=== PATIENT | female | born 1995 | race Caucasian/White ===

== ENCOUNTER 2018-07-26 02:03 | Outpatient (CLI) | payer OTHER | END 2018-07-26 04:30 | disposition home or self-care (01) | LOC: OBT 02:03 → L-D 02:25 → OBT 04:30 | DX: O26.893 Other specified pregnancy related conditions, third trimester (principal); Z3A.32 32 weeks gestation of pregnancy; R06.02 Shortness of breath | CPT/HCPCS: 76815 ==

== ENCOUNTER 2018-08-16 02:58 | Outpatient (CLI) | payer OTHER ==
[2018-08-16] MEDS: AL HYDROX/MG HYDROX/SIMETH 30 ML CUP PO (04:15)
[2018-08-16 04:54] LABS: ADD UMIC YES; UR ASCORBIC ACID NEGATIVE (NEGATIVE); UR BACTERIA FEW /HPF (NONE SEEN); UR BILIRUBIN (Dip) NEGATIVE (NEGATIVE); UR BLOOD (Dip) NEGATIVE (NEGATIVE); UR CLARITY CLOUDY (CLEAR); UR COLOR YELLOW (YELLOW); UR GLUCOSE (Dip) NEGATIVE (NEGATIVE); UR KETONES (Dip) NEGATIVE (NEGATIVE); UR LEUKOCYTE ESTERASE (Dip) NEGATIVE Leu/ul (NEGATIVE); UR NITRITE (Dip) NEGATIVE (NEGATIVE); UR RBC 1 /HPF (0-5); UR SPECIFIC GRAVITY (Dip) 1.014 (1.003-1.030); UR SQUAMOUS EPITHELIAL CELL MODERATE /HPF (FEW); UR TOTAL PROTEIN (Dip) NEGATIVE (NEGATIVE); UR UROBILINOGEN (Dip) NEGATIVE (NEGATIVE); UR WBC 2 /HPF (0-5)
== END 2018-08-16 07:20 | disposition home or self-care (01) ==
LOC: OBT 02:58 → L-D 02:58 → OBT 07:20
DX: O26.893 Other specified pregnancy related conditions, third trimester (principal); Z3A.35 35 weeks gestation of pregnancy; R10.2 Pelvic and perineal pain
CPT/HCPCS: 81001

== ENCOUNTER 2018-09-10 06:06 | Inpatient (IN) | payer OTHER ==
[2018-09-10] MEDS ORDERED: CARBOPROST 250 MCG INJ IM ×2 (06:30→09:00)
[2018-09-10] MEDS ORDERED: METHYLERGONOVINE 0.2 MG INJ IM ×2 (06:30→09:00)
[2018-09-10] MEDS ORDERED: AMPICILLIN 2 GM/NS (PMX) 100 ML IV (06:30)
[2018-09-10] MEDS ORDERED: OXYTOCIN 30 UNITS/LR 500 ML IV ×3 (06:30→09:00)
[2018-09-10] MEDS ORDERED: MISOPROSTOL 200 MCG TAB PR ×2 (06:30→09:00)
[2018-09-10 06:55] LABS: ADD MAN DIFF? NO
[2018-09-10] MEDS ORDERED: EPHEDrine SULFATE 50 MG/5 ML SYG (07:00)
[2018-09-10] MEDS: LACTATED RINGER'S 1,000 ML IV ×2 (07:07→20:45)
[2018-09-10 07:08] LABS: WHITE BLOOD COUNT 10.1 10^3/ul (4.8-10.8)
[2018-09-10 07:08] LABS: BASOPHILS % 0.2 % (0.0-2.0); EOSINOPHILS # 0.1 10^3/ul (0.0-0.5); EOSINOPHILS % 0.6 % (0.0-7.0); HEMATOCRIT 31.5 % (37.0-47.0); HEMOGLOBIN 9.7 g/dl (12.0-16.0); LYMPHOCYTES # 2.5 10^3/ul (0.8-2.9); LYMPHOCYTES % 25.1 % (15.0-51.0); MEAN CORPUSCULAR HEMOGLOBIN 24.3 pg (29.0-33.0); MEAN CORPUSCULAR HGB CONC 30.8 g/dl (32.0-37.0); MEAN CORPUSCULAR VOLUME 78.9 fl (82.0-101.0); MEAN PLATELET VOLUME 8.8 fl (7.4-10.4); MONOCYTE # 0.6 10^3/ul (0.3-0.9); MONOCYTES % 5.9 % (0.0-11.0); NEUTROPHIL # 6.8 10^3/ul (1.6-7.5); NEUTROPHILS % 67.7 % (39.0-77.0); PLATELET COUNT 315 10^3/UL (140-415); RED BLOOD COUNT 3.99 10^6/ul (4.20-5.40); RED CELL DISTRIBUTION WIDTH 14.9 % (11.5-14.5)
[2018-09-10 07:29] LABS: INR 0.93; PARTIAL THROMBOPLASTIN TIME 27.6 Sec (23.0-35.0); PROTIME 12.6 Sec (11.9-14.9)
[2018-09-10] MEDS ORDERED: ONDANSETRON 4 MG INJ (07:30)
[2018-09-10] MEDS ORDERED: METOCLOPRAMIDE 10 MG INJ (07:30)
[2018-09-10] MEDS ORDERED: KETOROLAC 30 MG INJ (07:30)
[2018-09-10] MEDS ORDERED: morphine SULFATE/PF (10 MG/10 ML) INJ (07:30)
[2018-09-10] MEDS: CITRIC ACID/NA CITRATE 30 ML CUP PO (07:36)
[2018-09-10] MEDS ORDERED: FENTAnyl 50 MCG/ML VIAL (07:57)
[2018-09-10 07:58] LABS: HEPATITIS B SURFACE ANTIGEN NEGATIVE (NEGATIVE)
[2018-09-10] MEDS: OXYTOCIN 30 UNITS/LR 500 ML IV ×2 (09:00→11:06)
[2018-09-10] MEDS ORDERED: morphine (1 MG/ML) 10ML SYRINGE IV ×3 (09:00)
[2018-09-10] MEDS ORDERED: OXYCODONE/ACETAMINOPHEN (5/325) TAB PO (09:00)
[2018-09-10] MEDS ORDERED: ONDANSETRON 4 MG INJ IV ×2 (09:00)
[2018-09-10] MEDS ORDERED: morphine 2 MG INJ IV ×3 (09:00)
[2018-09-10] MEDS: SENNA/DOCUSATE NA (8.6MG/50MG) TAB PO ×2 (09:00→20:44)
[2018-09-10] MEDS ORDERED: NALOXONE (0.4 MG/ML) INJ IV (09:00)
[2018-09-10] MEDS ORDERED: DIPHENHYDRAMINE 50 MG INJ IV ×2 (09:00)
[2018-09-10] MEDS: CEFAZOLIN 2 GM/50 ML (PMX) 50 ML IVPB ×3 (09:36→23:37)
[2018-09-10] MEDS: IBUPROFEN 600 MG TAB PO ×2 (12:00→18:00)
[2018-09-10] MEDS: KETOROLAC 30 MG INJ IV (17:29)
[2018-09-10 20:02] LABS: RAPID PLASMA REAGIN NONREACTIVE (NR)
[2018-09-10] MEDS: LANOLIN 7 GM TUBE TOP (20:45)
[2018-09-11] MEDS: LACTATED RINGER'S 1,000 ML IV ×3 (04:31→16:30)
[2018-09-11] MEDS: KETOROLAC 30 MG INJ IV (05:08)
[2018-09-11] MEDS: LEVOTHYROXINE 50 MCG TAB PO (05:46)
[2018-09-11] MEDS ORDERED: LEVOTHYROXINE 50 MCG TAB PO (07:00)
[2018-09-11 08:42] LABS: ADD MAN DIFF? NO
[2018-09-11 08:50] LABS: WHITE BLOOD COUNT 8.1 10^3/ul (4.8-10.8)
[2018-09-11 08:50] LABS: BASOPHILS % 0.2 % (0.0-2.0); EOSINOPHILS % 0.5 % (0.0-7.0); HEMATOCRIT 26.6 % (37.0-47.0); HEMOGLOBIN 8.1 g/dl (12.0-16.0); LYMPHOCYTES # 1.9 10^3/ul (0.8-2.9); MEAN CORPUSCULAR HEMOGLOBIN 24.5 pg (29.0-33.0); MEAN CORPUSCULAR HGB CONC 30.5 g/dl (32.0-37.0); MEAN CORPUSCULAR VOLUME 80.4 fl (82.0-101.0); MEAN PLATELET VOLUME 8.8 fl (7.4-10.4); MONOCYTE # 0.6 10^3/ul (0.3-0.9); MONOCYTES % 6.9 % (0.0-11.0); NEUTROPHIL # 5.5 10^3/ul (1.6-7.5); NEUTROPHILS % 68.8 % (39.0-77.0); PLATELET COUNT 247 10^3/UL (140-415); RED BLOOD COUNT 3.31 10^6/ul (4.20-5.40); RED CELL DISTRIBUTION WIDTH 15.1 % (11.5-14.5)
[2018-09-11] MEDS: FERROUS SULFATE (EC) 325 MG TAB PO ×2 (08:50→21:17)
[2018-09-11] MEDS: SENNA/DOCUSATE NA (8.6MG/50MG) TAB PO ×2 (08:50→21:17)
[2018-09-11] MEDS: CEFAZOLIN 2 GM/50 ML (PMX) 50 ML IVPB ×2 (10:11→10:30)
[2018-09-11] MEDS: OXYCODONE/ACETAMINOPHEN (5/325) TAB PO ×2 (12:52→18:28)
[2018-09-11] MEDS: IBUPROFEN 600 MG TAB PO ×5 (12:53→23:58)
[2018-09-12] MEDS: LEVOTHYROXINE 50 MCG TAB PO ×2 (06:00→06:12)
[2018-09-12] MEDS: IBUPROFEN 600 MG TAB PO ×4 (06:12→23:38)
[2018-09-12] MEDS: FERROUS SULFATE (EC) 325 MG TAB PO ×2 (08:51→21:03)
[2018-09-12] MEDS: SENNA/DOCUSATE NA (8.6MG/50MG) TAB PO ×2 (08:52→21:00)
[2018-09-12] MEDS: OXYCODONE/ACETAMINOPHEN (5/325) TAB PO ×2 (08:53→16:25)
[2018-09-12] MEDS ORDERED: GUAIFENESIN/DM 5ML CUP PO (18:30)
[2018-09-13] MEDS: LEVOTHYROXINE 50 MCG TAB PO ×2 (06:00→06:18)
[2018-09-13] MEDS: IBUPROFEN 600 MG TAB PO ×2 (06:18→12:35)
[2018-09-13] MEDS: FERROUS SULFATE (EC) 325 MG TAB PO (09:22)
[2018-09-13] MEDS: SENNA/DOCUSATE NA (8.6MG/50MG) TAB PO (09:22)
== END 2018-09-13 14:40 | disposition home or self-care (01) | DRG 788 ==
LOC: L-D 06:06 → PP1 11:47
PROVIDERS: Obstetrics & Gynecology
PROC: 10D00Z1 Extraction of Products of Conception, Low, Open Approach (ICD-10-PCS; principal; 2018-09-11)
DX: O34.211 Maternal care for low transverse scar from previous cesarean delivery (principal); Z3A.39 39 weeks gestation of pregnancy; O99.284 Endocrine, nutritional and metabolic diseases complicating childbirth; E03.9 Hypothyroidism, unspecified; Z37.0 Single live birth; O99.214 Obesity complicating childbirth; E66.9 Obesity, unspecified; Z68.38 Body mass index [BMI] 38.0-38.9, adult
CPT/HCPCS: 85025; 85610; 85730; 86592; 86850; 86900; 86901; 87340; 99464

== ENCOUNTER 2018-09-26 19:24 | Emergency (ER) | payer OTHER ==
[2018-09-26] MEDS: ACETAMINOPHEN 500 MG TAB PO (21:00)
[2018-09-26] MEDS: ONDANSETRON 4 MG INJ IV (21:01)
[2018-09-26] MEDS: KETOROLAC 30 MG INJ IV (21:01)
[2018-09-26] MEDS: SOD CHLORIDE 0.9% 1,000 ML IV (21:17)
[2018-09-26 21:21] LABS: ADD UMIC YES; UR ASCORBIC ACID NEGATIVE (NEGATIVE); UR BILIRUBIN (Dip) NEGATIVE (NEGATIVE); UR BLOOD (Dip) 3+ mg/dL (NEGATIVE); UR CLARITY SLIGHTLY CLOUDY (CLEAR); UR COLOR YELLOW (YELLOW); UR GLUCOSE (Dip) NEGATIVE (NEGATIVE); UR KETONES (Dip) NEGATIVE (NEGATIVE); UR LEUKOCYTE ESTERASE (Dip) 1+ Leu/ul (NEGATIVE); UR MUCUS FEW /HPF (NONE SEEN); UR NITRITE (Dip) NEGATIVE (NEGATIVE); UR RBC 2 /HPF (0-5); UR SPECIFIC GRAVITY (Dip) 1.019 (1.003-1.030); UR SQUAMOUS EPITHELIAL CELL FEW /HPF (FEW); UR TOTAL PROTEIN (Dip) NEGATIVE (NEGATIVE); UR UROBILINOGEN (Dip) NEGATIVE (NEGATIVE); UR WBC 6 /HPF (0-5)
[2018-09-26 21:24] LABS: ADD MAN DIFF? NO
[2018-09-26 21:26] LABS: BASOPHILS % 0.3 % (0.0-2.0); EOSINOPHILS # 0.1 10^3/ul (0.0-0.5); EOSINOPHILS % 0.9 % (0.0-7.0); HEMATOCRIT 39.2 % (37.0-47.0); HEMOGLOBIN 11.9 g/dl (12.0-16.0); LYMPHOCYTES # 1.2 10^3/ul (0.8-2.9); LYMPHOCYTES % 16.8 % (15.0-51.0); MEAN CORPUSCULAR HEMOGLOBIN 24.3 pg (29.0-33.0); MEAN CORPUSCULAR HGB CONC 30.4 g/dl (32.0-37.0); MEAN PLATELET VOLUME 9.6 fl (7.4-10.4); MONOCYTE # 0.4 10^3/ul (0.3-0.9); MONOCYTES % 6.1 % (0.0-11.0); NEUTROPHIL # 5.2 10^3/ul (1.6-7.5); NEUTROPHILS % 75.6 % (39.0-77.0); PLATELET COUNT 306 10^3/UL (140-415); RED CELL DISTRIBUTION WIDTH 15.2 % (11.5-14.5)
[2018-09-26 21:26] LABS: WHITE BLOOD COUNT 6.9 10^3/ul (4.8-10.8)
[2018-09-26 21:47] LABS: ALANINE AMINOTRANSFERASE 33 IU/L (13-69); ALBUMIN 4.2 g/dl (3.3-4.9); ALBUMIN/GLOBULIN RATIO 1.02; ALKALINE PHOSPHATASE 125 IU/L (42-121); ANION GAP 13 (5-13); ASPARTATE AMINO TRANSFERASE 45 IU/L (15-46); BILIRUBIN,INDIRECT 0.3 mg/dl (0-1.1); BILIRUBIN,TOTAL 0.3 mg/dl (0.2-1.3); BLOOD UREA NITROGEN 9 mg/dl (7-20); CARBON DIOXIDE 23 mmol/L (21-31); CHLORIDE 103 mmol/L (97-110); CREATININE 0.67 mg/dl (0.44-1.00); Estimated GFR > 60 mL/min (>60); GLUCOSE 101 mg/dl (70-220); LIPASE 80 U/L (23-300); POTASSIUM 3.7 mmol/L (3.5-5.1); SODIUM 139 mmol/L (135-144); TOTAL PROTEIN 8.3 g/dl (6.1-8.1)
[2018-09-26 23:55] LABS: LACTIC ACID 0.9 mmol/L (0.5-2.0)
== END 2018-09-26 23:48 | disposition home or self-care (01) ==
LOC: FTE 19:24
DX: N39.0 Urinary tract infection, site not specified (principal)
CPT/HCPCS: 36415; 80053; 81001; 81025; 83605; 83690; 85025; 87040; 96361; 96374; 96375; 99284-25